=== PATIENT | female | born 1940 | race African-American/Black ===

== ENCOUNTER 2019-01-10 06:41 | Emergency (ER) | payer MEDICARE ==
[2019-01-10] VITALS (12 sets, daily range): BP systolic 131–181; BP diastolic 89–99
[~2019-01-10] VITALS: Ht 160 cm; Wt 79.0 kg
[2019-01-10 08:24] LABS: BASOPHILS % 0.8 % (0.0-2.0); EOSINOPHILS % 3.3 % (0.0-5.0); HEMATOCRIT. 38.1 % (36.0-48.0); LYMPHOCYTES % 21.9 % (20.0-50.0); MEAN CORPUSCULAR HEMOGLOBIN 28.8 pg (28.0-32.0); MEAN CORPUSCULAR VOLUME 91.8 fL (81.0-99.0); MEAN PLATELET VOLUME 7.2 fl (7.4-10.4); MONOCYTES % 8.1 % (2.0-8.0); NEUTROPHILS % 65.9 % (40.0-76.0); PLATELET 437 x1000/uL (130-400); RED BLOOD CELL COUNT 4.15 mill/uL (4.2-5.4); RED CELL DISTRIBUTION WIDTH 14.9 % (11.6-14.6)
[2019-01-10 08:29] LABS: CHLORIDE 106 mEq/L (98-107)
[2019-01-10 08:30] LABS: PROTHROMBIN TIME 10.2 sec (9.1-11.1)
[2019-01-10] MEDS ORDERED: CEFAZOLIN 1000MG PREMIX 50 ML IV ONE ×2 (08:30→08:48)
[2019-01-10] MEDS ORDERED: LIDOCAINE HCL 1% 20ML VIAL (Pyxis) INJ ONE (08:48)
[2019-01-10] MEDS ORDERED: SODIUM BICARBONATE 4% (2.4MEQ) 5ML VIAL IV ONE (08:48)
[2019-01-10] MEDS ORDERED: FENTANYL CITRATE/PF 50MCG/ML 2ML VIAL ONE (08:49)
[2019-01-10] MEDS ORDERED: FENTANYL CITRATE/PF 50MCG/ML 2ML VIAL IV ONE (09:45)
== END 2019-01-10 11:14 | disposition home or self-care (01) ==
LOC: ER 06:41 → EDBEDREQ 07:51 → ER 11:14 → CANBEDREQ 22:51
DX: T82.41XA Breakdown (mechanical) of vascular dialysis catheter, initial encounter (principal); Y83.2 Surgical operation with anastomosis, bypass or graft as the cause of abnormal reaction of the patient, or of later complication, without mention of misadventure at the time of the procedure; Y92.9 Unspecified place or not applicable; I13.2 Hypertensive heart and chronic kidney disease with heart failure and with stage 5 chronic kidney disease, or end stage renal disease; I50.9 Heart failure, unspecified; N18.6 End stage renal disease; Z99.2 Dependence on renal dialysis; E16.2 Hypoglycemia, unspecified; D47.3 Essential (hemorrhagic) thrombocythemia; E88.09 Other disorders of plasma-protein metabolism, not elsewhere classified
CPT/HCPCS: 36415; 36581; 71045; 77001; 80053; 82962; 85025; 85610; 93005; 96365; 96372; 99284; C1750; C1769; J0690; J1642; J3010; J3490; J7050; 99152; 99153; G0500

== ENCOUNTER → 2019-08-10 | Day surgery (SDC) | payer MEDICARE, OTHER ==
[~2019-08-10] VITALS: Ht 157.5 cm; Wt 74.4 kg
[~2019-08-10] MED LIST: ROPIVACAINE SUBCUT SCH; TRIAMCINOLONE ACETONIDE 40MG/ML 1ML VIAL IM ONE
== END | disposition home or self-care (01) ==
LOC: RAD 05:49
PROVIDERS: ATTEND Internal Medicine
DX: M25.551 Pain in right hip (principal); M16.11 Unilateral primary osteoarthritis, right hip
CPT/HCPCS: 20611; 76942; J3301

== ENCOUNTER → 2019-12-18 | Day surgery (SDC) | payer MEDICARE, OTHER ==
[~2019-12-18] VITALS: Ht 157.5 cm; Wt 72.6 kg
[~2019-12-18] MED LIST changes: +IOHEXOL-300 50 ML BOTTLE IV ONE; +LIDOCAINE HCL 1% 20ML VIAL (Pyxis) INJ ONE; +ROPIVACAINE HCL 10MG/ML 20 ML VIAL EPI SCH; -ROPIVACAINE SUBCUT SCH; +SODIUM BICARBONATE 4% (2.4MEQ) 5ML VIAL IV ONE; -TRIAMCINOLONE ACETONIDE 40MG/ML 1ML VIAL IM ONE; +TRIAMCINOLONE ACETONIDE 40MG/ML 1ML VIAL IM SCH
== END | disposition home or self-care (01) ==
LOC: RAD 08:29
PROVIDERS: ATTEND Internal Medicine
DX: M25.551 Pain in right hip (principal)
CPT/HCPCS: 20610; 77002; J2795; J3301; J3490; Q9967; 20611